=== PATIENT | female | born 1980 | race Caucasian/White ===

== ENCOUNTER 2018-11-29 07:01 | Day surgery (SDC) ==
[2018-11-27 09:39] LABS: HEMATOCRIT 42.7 % (37.0-47.0); HEMOGLOBIN 14.5 g/dL (12.0-16.0); MCH 32.4 PG (27-31); MCV 95.5 FL (81-99); MPV 9.3 FL (7.4-10.4); RBC 4.47 XMIL (4.2-5.4); RDW 12.3 % (11.5-14.5); WBC 6.99 X1000 (4.8-10.8)
[2018-11-27 10:23] LABS: AGAP 13; BUN 10 mg/dL (8-22); CALCIUM 9.8 mg/dL (8.8-10.2); CHLORIDE 103 mmol/L (98-107); COSMO 280; CREATININE 0.6 mg/dL (0.5-0.9); ESTIMATED GFR > 60; GLUCOSE 99 mg/dL (70-104); POTASSIUM 4.1 mmol/L (3.5-5.1); SODIUM 141 mmol/L (136-145); TCO2 25 mmol/L (25-35)
[2018-11-29] MEDS ORDERED: PEPCID ONE (07:28)
[2018-11-29] MEDS ORDERED: LR 1,000 ML ONE ×2 (07:28→10:57)
[2018-11-29] MEDS ORDERED: KEFZOL 1 GM/D5W 1 GM/50 ML IVPB ONE (07:28)
[2018-11-29] MEDS ORDERED: REGLAN ONE (07:28)
[2018-11-29] MEDS ORDERED: ZEMURON ONE (07:49)
[2018-11-29] MEDS ORDERED: XYLOCAINE-MPF 2% ONE (07:49)
[2018-11-29] MEDS ORDERED: DIPRIVAN 1% ONE (07:49)
[2018-11-29] MEDS ORDERED: SENSORCAINE-MPF 0.5%/EPI 1:200,000 ONE (10:57)
[2018-11-29] MEDS ORDERED: FENTANYL ONE (11:09)
[2018-11-29] MEDS ORDERED: DECADRON ONE (11:40)
[2018-11-29] MEDS ORDERED: ZOFRAN ONE (11:40)
[2018-11-29] MEDS: DILAUDID ONE ×2 (13:12→13:15)
[2018-11-29 13:13] LABS: URINE SOURCE CATH
[2018-11-29 13:20] LABS: BILIRUBIN URINE NEGATIVE (NEGATIVE); BLOOD URINE NEGATIVE (NEGATIVE); COLOR STRAW; GLUCOSE URINE NEGATIVE (NEGATIVE); KETONE URINE NEGATIVE (NEGATIVE); LEUKOCYTES URINE NEGATIVE (NEGATIVE); NITRITE URINE NEGATIVE (NEGATIVE); PROTEIN URINE NEGATIVE (NEGATIVE); TURBIDITY URINE CLEAR (CLEAR); UROBILINOGEN URINE NORMAL (NORMAL)
[2018-11-29 13:21] LABS: UR EPITHELIAL CELLS <10 /HPF (<10); URINE BACTERIA NEGATIVE /HPF; URINE RBC <10 /HPF (<10); URINE WBC <10 /HPF (<10)
[2018-11-29] MEDS ORDERED: D5 1/2 NS 1,000 ML ONE (13:23)
[2018-11-29] MEDS: NORCO-7.5 ONE ×2 (13:31→22:06)
[2018-11-29] MEDS ORDERED: MORPHINE IV PRN (14:06)
[2018-11-29] MEDS ORDERED: LABETALOL IV PRN (14:15)
[2018-11-29] MEDS ORDERED: NORCO-10 PO PRN (14:15)
[2018-11-29] MEDS ORDERED: NORCO-5 PO PRN (14:15)
[2018-11-29] MEDS ORDERED: ZOFRAN IV PRN (14:15)
[2018-11-29] MEDS ORDERED: D5 1/2 NS 1,000 ML IV SCH (15:00)
[2018-11-29] MEDS: NORCO-7.5 PO PRN (18:03)
[2018-11-29] MEDS: KEFZOL 1 GM/D5W 1 GM/50 ML IVPB IV SCH (18:04)
[2018-11-29] MEDS: PEPCID IV SCH (20:51)
[2018-11-29] MEDS: PERIDEX MT SCH (20:52)
[2018-11-29] MEDS: COLACE PO SCH (20:53)
[2018-11-29] MEDS ORDERED: SODIUM CHLORIDE 0.9% IV SCH (21:00)
--- NOTE | 2018-11-29 21:06 | OPERATIVE NOTE ---
PROCEDURE DATE: 11/29/2018 PREOPERATIVE DIAGNOSIS: Right nephroptosis. POSTOPERATIVE DIAGNOSIS: Right nephroptosis. PROCEDURE PERFORMED: Right robotic-assisted laparoscopic nephropexy. SURGEON: Lopez Garibay MD. SKID ADZER: None. BLOOD LOSS: 10 mL. DRAINS: A 16-Maltese Graves catheter. SPECIMENS REMOVED: None. ANESTHESIA: General anesthesia with endotracheal intubation. OPERATIVE FINDINGS: The patient had a very mobile kidney. It was easily able to be removed cranial and caudally. Ultimately, I mobilized the kidney, removing the perinephric fat, and was able to use a Prolene suture for nephropexy of the right kidney against the psoas fascia. Three sutures were thrown and good approximation of the kidney to the lateral psoas fascia was undertaken. No obvious mobility of the kidney was seen. INDICATION FOR PROCEDURE: Ms. Shahid is a 37-year-old who presented to [facility] with right flank pain. 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 Reviewing prior imaging indicated the kidney was ascending and descending, leading to appearance of malrotation. Intravenous pyelogram was performed which showed evidence of descent of the kidney by over 2 vertebrae heights. At the time, the patient was recommended to undergo nephropexy. Risks, benefits, and alternatives to surgical procedure were discussed wit the patient, and the patient elected to proceed. DESCRIPTION OF PROCEDURE: After informed consent was obtained, the patient was brought to the operating room and placed on the operative table in supine position. She received preoperative antibiotics and underwent general anesthesia with endotracheal intubation. Following this, a Graves catheter was inserted and inflated with 10 mL of sterile water and placed to gravity drainage. A specimen was sent for urine culture. Following this, the patient was placed into a left lateral decubitus position, with right side up Lower extremity top leg was left straight and bottom leg was bent. Pillows and padding were applied. All pressure points were padded. A small bump was placed posterior to the flank to ensure adequate positioning, at which time the patient was prepped and draped in the usual sterile fashion. A preop time-out was performed with all parties in agreement, including anesthesia, surgical, and nursing staff. A Veress needle was then obtained, and using towel clamps, the umbilicus was pulled superiorly and a Veress needle was inserted through the umbilicus. A drop test was performed, which allowed for good drainage of sterile water into the abdomen, with no blood or feculent material on aspiration. At this time, a low-pressure insufflation was started with a pressure of 3 and increasing up to 15. Good distention of the abdominal contents was visualized, at which time the right ribs and chest were marked. The iliac spine was then outlined. Using this, incision was marked out, with a 12 mm camera port placed in the midline and 2 robotic trocars placed approximately 8 cm apart. Brass Chaser port was placed inferior to the belly button, with a 5 mm trocar. Incisions were initially marked out, and then the camera port was placed and passed easily into the abdomen. Using a laparoscope, no evidence of any adhesions. The midline was visualized. A small colonic adhesion was seen inferior to the lower pole of the kidney. The previously placed incisions were then infiltrated with Marcaine with epinephrine. Incisions were made and trocars were placed with no evidence of any bowel or vessel injury. Once all of the trocars were placed, the patient was then rotated appropriately and the robot was then docked. All instruments were then inserted. Starting on the white line of Toldt, the bowel was then taken down sharply with electrocautery. Once the colon was able to be dissected away from the lateral wall, this was reflected medially. The kidney was easy to visualize and highly mobile cranially and caudally. All the overlying tissue was extracted off the kidney to expose the capsule. Lateral attachments were dissected down until we were able to visualize the psoas fascia. This was carried superiorly and to dissect also the liver attachments away from the kidney. This allowed good mobility of the kidney. Once adequate dissection of the kidney and the psoas fascia was obtained, a 2-0 Prolene suture was then inserted through the 8 mm robotic trocar, grasped with needle drivers, and then 2 stitches were then passed through the fascia and then through the capsule on the posterolateral portion of the kidney. Once placed, each one of these was tied down, which allowed for good fixation of the kidney to the psoas fascia. A third suture was then placed more laterally to ensure adequate fixation. All needles were then removed with no evidence of any active bleeding. Pressure was decreased down to 3 mmHg with no bleeding visualized. Following this, the kidney appeared to be well vascularized. No other areas of bleeding were seen. All instruments were removed and the robot was undocked. All trocars were extracted and using a 2-0 Vicryl, the 12 mm camera port was closed in a [id number] fashion. All incisions were then irrigated and then closed with a 4-0 Monocryl in a running fashion, and Covidien skin adhesive was then applied. The patient was then rotated back into a supine position, and was awoken and was taken to Recovery in stable condition. DISPOSITION: The patient will be monitored overnight in the hospital with her Graves catheter removed in the morning and hopefully discharged tomorrow. cc: Lopez Garibay MD
[2018-11-30] MEDS: NORCO-7.5 PO PRN ×3 (02:39→10:46)
[2018-11-30] MEDS: KEFZOL 1 GM/D5W 1 GM/50 ML IVPB IV SCH ×2 (02:40→10:47)
[2018-11-30 06:52] LABS: HEMATOCRIT 36.4 % (37.0-47.0); HEMOGLOBIN 12.1 g/dL (12.0-16.0); MCH 32.4 PG (27-31); MCHC 33.2 g/dL (33-37); MCV 97.6 FL (81-99); MPV 9.6 FL (7.4-10.4); RBC 3.73 XMIL (4.2-5.4); RDW 12.6 % (11.5-14.5); WBC 9.12 X1000 (4.8-10.8)
--- NOTE | 2018-11-30 07:08 | PROGRESS NOTE ---
DATE: 11/30/2018 SUBJECTIVE: Postoperative day 1 from a robotic-assisted laparoscopic right nephropexy. The patient's pain has been well controlled. She denies any nausea or vomiting. She does describe some shoulder pain and has slight tenderness in her abdomen. Denies any fevers or chills. Tolerated clear liquids yesterday, will advance today. The catheter was removed this morning and the patient has already urinated. Passing flatus, no bowel movement. OBJECTIVE: Vital signs: Temperature 98.1, heart rate 62, blood pressure 93/58, oxygen saturation 100% on room air. General: No acute distress. Resting comfortably in bed. Alert and oriented x3. Respiratory: Good respiratory effort without audible wheezing or rales. Abdomen: Soft, nondistended. Slight tenderness to palpation in the midline. No palpable masses. No suprapubic tenderness. No CVA tenderness. Musculoskeletal: Moving all extremities. SKIN: 4 incisions with adhesive present. No erythema or drainage. ASSESSMENT AND PLAN: Ms. Shahid is a 37-year-old with a history of nephroptosis, who underwent a right robotic laparoscopic nephropexy yesterday. The patient has been doing well, has had good pain control. Hematocrit was 36 this morning and creatinine is 0.7. She has not been ambulatory as of yet. We will encourage her to be ambulatory today, walking the hallways. I advanced her diet last night, has not eaten breakfast. The catheter was removed this morning. The patient has been able to urinate with a low postvoid residual. We will continue with oral pain medication and ambulation as tolerated. Continue home medications. We will continue to monitor her, if does well will consider discharge later. cc: Lopez Garibay MD [facility]
[2018-11-30 07:11] LABS: AGAP 6; BUN 3 mg/dL (8-22); CALCIUM 8.9 mg/dL (8.8-10.2); CHLORIDE 108 mmol/L (98-107); COSMO 278; CREATININE 0.7 mg/dL (0.5-0.9); ESTIMATED GFR > 60; GLUCOSE 100 mg/dL (70-104); POTASSIUM 3.9 mmol/L (3.5-5.1); SODIUM 141 mmol/L (136-145); TCO2 27 mmol/L (25-35)
[2018-11-30 07:15] VITALS: BP 113/74
[2018-11-30] MEDS: COLACE PO SCH (08:22)
[2018-11-30] MEDS: PERIDEX MT SCH (08:22)
[2018-11-30] MEDS: PEPCID IV SCH (08:23)
[2018-11-30] MEDS ORDERED: LOPRESSOR PO SCH (09:00)
[2018-11-30] MEDS ORDERED: PRILOSEC PO SCH (09:00)
[2018-11-30] MEDS ORDERED: CLARITIN PO SCH (09:00)
== END 2018-11-30 11:37 | disposition home or self-care (01) ==
LOC: OR 07:01 → INTOOBSV 13:36 → DIRADM 13:36 → 4N 13:37 → OR 11-30 11:37
PROVIDERS: ATTEND Urology
CPT/HCPCS: 80048; 81001; 84703; 85027; 94799; A9270; J0690; J1100; J1170; J2405; J3010; J7120; S0028; S2900